=== PATIENT | male | born 1955 | race Caucasian/White ===

== ENCOUNTER 2021-05-17 18:57 | Emergency (ER) | payer BC, SELFPAY ==
--- NOTE | ~2021-05-17 | XR_ITS ---
EXAMINATION: XR hand LT min 3V INDICATION: Left hand swelling TECHNIQUE: Three views of the left hand are obtained. COMPARISON: None available FINDINGS: There is moderate osteoarthritis at the triscaphe and first carpometacarpal joints as well as in multiple interphalangeal joints. No fracture is identified. There is dorsal soft tissue swellin g of the hand. IMPRESSION: 1. Polyarticular osteoarthritis and dorsal soft tissue swelling of the hand without acute osseous abn ormality identified. Reviewed, dictated and finalized at location A. IMPRESSION: 1. Polyarticular osteoarthritis and dorsal soft tissue swelling of the hand wit hout acute osseous abnormality identified.
[2021-05-17 19:07] VITALS: BP 140/77; PULSE 80; RESP 16; TEMP 36.9; O2SAT 99
--- NOTE | 2021-05-17 19:27 | ED.UPPEXIN ---
HPI - Extremity Injury (Upper) General Chief Complaint: Extremity Injury, Upper Stated Complaint: left hand swollen Time Seen by Provider: 05/17/21 19:28 Source: patient, family, RN notes reviewed and old records reviewed Mode of arrival: ambulatory Limitations: no limitations History of Present Illness HPI narrative: 65-year-old male accompanied by spouse presents to [facility] complaints of left hand swelling and pain since yesterday morning. Patient states he awoke with his left hand swollen with reddened tissue area to the MCP of index digit on left hand with no known injury to hand. Patient is left hand dominant, denies any known bug bite, sting, or contusion to area with area raised and red with no induration but painful to touch. Patient is able to move all fingers on own power and is able to make a fist but not tight due to pain and swelling, nail beds have brisk capillary refill and patient has strong left radial pulse. He states that pain has increased to 8/10 today and he has been taking Benadryl and Ibuprofen for his pain. Patient has been COVID vaccinated. MD complaint: injury to: left Onset (ago): day(s) (1) Other Extremity Injury: Left: hand Treatments prior to arrival: NSAIDS and other (Benadryl) Related Data Home Medications Medication Instructions Recorded Confirmed atorvastatin 5 mg PO DAILY 05/17/21 05/17/21 trazodone 100 mg PO DAILY 05/17/21 05/17/21 zolpidem 12.5 mg PO HS 05/17/21 05/17/21 Allergies Allergy/AdvReac Type Severity Reaction Status Date / Time No Known Allergies Allergy Verified 05/17/21 19:40 Review of Systems Review of Systems: CONSTITUTIONAL: Denies fever, chills, or sweats. EYES: Denies visual changes, redness, or discharge. ENT: Denies rhinorrhea, congestion, sore throat, or otalgia. CARDIOVASCULAR: Denies chest pain, palpitations, or edema. RESPIRATORY: Denies cough or dyspnea. GASTROINTESTINAL: Denies abdominal pain, nausea, vomiting, or diarrhea. GENITOURINARY: Denies dysuria or hematuria. SKIN: Denies rash or itching, red raised tissue area to left index finger at MCP area dorsally. MUSCULOSKELETAL: Denies back pain,positive for pain to left hand with swelling present, or myalgia. NEUROLOGIC: Denies headache, numbness, or weakness. PSYCHIATRIC: Denies anxiety or depression. All systems reviewed & are unremarkable except as noted in HPI and below PMFSH Past Medical History Medical History (Updated 05/21/21 @ 11:22 by Sallie Mcgee NP) Arthritis Hyperlipidemia Insomnia Surgical History Surgical History (Updated 05/21/21 @ 11:21 by Sallie Mcgee NP) H/O total knee replacement Social History Social History (Updated 05/21/21 @ 11:21 by Sallie Mcgee NP) Smoking status: Unknown if ever smoked Substance use: never Living arrangements: with family Gender identity (if verbalized by the patient): Male Comments At time of signature, agree with nursing past medical, surgical, social and family history. There is no relevant family history pertinent to the presenting complaint Exam Narrative: GENERAL: Well-appearing, well-nourished, and in no acute distress. HEAD: Normocephalic, atraumatic. EYES: PERRLA and EOMI. ENT: Nares clear, no rhinorrhea or epistaxis. Mucous membranes moist.TM's normal with good light reflex, throat pink with no lesions or exudates ot tonsil enlargement. NECK: Supple.no lymphadenopathy CHEST: Clear to auscultation. No respiratory distress.SAO2 99% on room air. HEART: Regular rate and rhythm. No murmur heard. Normal peripheral pulses. ABDOMEN: Soft, nontender, nondistended, normal active bowel sounds. EXTREMITIES: Normal range of motion. No edema with exception to swelling to left hand which is pitting on dorsal aspect, 1.5 cm diameter red raised lesion area on left MCP area of index finger noted, with no known injury, bite, or sting, painful to touch and warm, adequate sensation and circulation to left hand with strong left radial
== END 2021-05-17 19:54 | disposition home or self-care (01) ==
PROVIDERS: Emergency Provider Registered Nurse; PCP Internal Medicine
DX: M79.89 Other specified soft tissue disorders (principal); L98.9 Disorder of the skin and subcutaneous tissue, unspecified; E78.00 Pure hypercholesterolemia, unspecified
CPT/HCPCS: 73130; 99213; G0463

== ENCOUNTER 2022-07-25 13:35 | Outpatient (CLI) | payer MEDICARE, SELFPAY ==
--- NOTE | ~2022-07-25 | XR_ITS ---
XR lumbar spine min 4V DATE: 07/25/2022 13:56 INDICATION: Back pain, left greater than right TECHNIQUE: AP, lateral, coned lateral lumbosacral views. Lateral oblique views. Flexion and extension standing views. COMPARISON: None FINDINGS: There is slight levoscoliosis of the lumbar spine. No spondylolysis or spondylolisthesis. T here is degenerative change at the apophyseal joints particularly at L4-5, with slight anterolisthesi s noted at L4-5 in flexion. No fracture or bone destruction is detected. Included lower thoracic and lumbar pedicles appear intac t. There is degenerative spurring throughout the included lower thoracic and lumbar spine the lumbar and lumbosacral interspaces are relatively preserved. Normal sacroiliac joints. Status post left total hip arthroplasty.. IMPRESSION: Degenerative changes apophyseal joints at L4-5 and particularly, with minimal grade 1 ant erolisthesis at L4-5 flexion Degenerative spurring throughout the lower thoracic and lumbar spine but relative preservation of lum bar intervertebral disc spaces Status post left total hip arthroplasty Reviewed, dictated and finalized at location B. L[facility] [employer]ENDANT IMPRESSION: Degenerative changes apophyseal joints at L4-5 and particularly, wi th minimal grade 1 anterolisthesis at L4-5 flexion Degenerative spurring throughout the lower thoracic and lumbar spine but relati ve preservation of lumbar intervertebral disc spaces Status post left total hip arthroplasty
== END 2022-07-25 13:36 | disposition home or self-care (01) ==
LOC: ANHIMG 13:39
PROVIDERS: PCP Internal Medicine; Visit Provider Neurological Surgery
DX: M54.9 Dorsalgia, unspecified (principal); M43.16 Spondylolisthesis, lumbar region; M77.8 Other enthesopathies, not elsewhere classified; Z96.642 Presence of left artificial hip joint
CPT/HCPCS: 72110

== ENCOUNTER 2022-10-17 15:45 | Outpatient (CLI) | payer MEDICARE, SELFPAY ==
--- NOTE | 2022-10-17 15:54 | ECG_ITS ---
Measurements Intervals [place] Rate: 63 P: 70 MS: 235 QRS: 11 QRSD: 79 T: 32 QT: 416 QTc: 428 Interpretive Statements SINUS RHYTHM WITH SINUS ARRHYTHMIA WITH FIRST DEGREE AV BLOCK BORDERLINE ECG NO PREVIOUS ECG AVAILABLE FOR COMPARISON Electronically Signed On 10-17-2022 16:10:53 RETAIL BUSINESS ANALYST by Randolph Agustin M.D.
[2022-10-17 16:29] LABS: Appearance Urine Clear (Clear); Bilirubin Urine Negative (Negative); Blood Urine Negative (Negative); Color Urine Yellow (Yellow); Glucose Urine UA Negative (Negative); Hematocrit 41.8 % (42.0-52.0); Hemoglobin 14.5 g/dL (14.0-18.0); Ketones Urine Negative (Negative); Leukocyte Esterase Ur Negative LEU/UL (NEGATIVE); Mean Corpuscular HGB Conc 34.7 g/dl (32-36); Mean Corpuscular Hemoglobin 34.1 pg (26-34); Mean Corpuscular Volume 98.4 fl (80-100); Nitrate Urine Negative (Negative); Platelet Count Result 172 k/mm3 (150-375); Protein Urine Negative (Negative); Red Blood Count 4.25 M/mm3 (4.6-6.20); Red Cell Distribution Width 12.7 % (11.5-14.5); Specific Grav Ur 1.012 (1.001-1.035); Urobilinogen Urine 0.2 mg/dL (<2.0); White Blood Count 5.7 K/mm3 (4.5-10.0)
[2022-10-17 16:37] LABS: Anion Gap 6 mmol/L (8-16); Blood Urea Nitrogen 13 mg/dL (9-20); Calcium 9.1 mg/dL (8.4-10.2); Carbon Dioxide 29 mmol/L (22-30); Chloride 106 mmol/L (98-107); Estimated Glomerular Filt Rate > 60; Glucose 93 mg/dL (65-110); Potassium 4.1 mmol/L (3.4-5.0); Sodium 141 mmol/L (137-145)
[2022-10-17 16:38] LABS: INR 1.1; Prothrombin Time 13.4 Seconds (11.1-14.7)
[2022-10-17 16:39] LABS: Partial Thromboplastin Time 28.8 SECONDS (22.3-36.8)
[2022-10-17 16:57] LABS: Add Urine Microscopic? NO
== END 2022-10-17 15:46 | disposition home or self-care (01) ==
PROVIDERS: PCP Internal Medicine; Visit Provider Neurological Surgery
DX: Z01.818 Encounter for other preprocedural examination (principal); Z79.82 Long term (current) use of aspirin; I49.8 Other specified cardiac arrhythmias
CPT/HCPCS: 36415; 80048; 81003; 85027; 85610; 85730; 86850; 86900; 86901; 93005

== ENCOUNTER 2022-10-26 01:11 | Day surgery (SDC) | payer MEDICARE, SELFPAY ==
[2022-10-23 11:42] VITALS: BMI 32.8
--- NOTE | 2022-10-23 11:57 | PC.NURSE ---
Report to the Outpatient Waiting Room, entrance under the green pavilion located off [facility], at time __6:00am on date ____10/26/22___. Planned Procedure Time: ___7:30am . Time changes happen often and if your time is changed the preop area will call you the afternoon before. - You and your visitor will be asked to self-screen and do not enter if you have any COVID symptoms. - Only one visitor is requested with a max of two and NO children visitors are allowed at this time. - The patient visitor may be requested to leave or wait in car when not with patient due to distancing restrictions. - A mask is optional within the hospital at this time. Patients may have clear liquids (water, carbonated beverages, clear teas, apple juice) until 3 hours prior to surgery with a maximum of 20 ounces. - No food from midnight until time of surgery Take the following medications with a SIP of water the morning of surgery: ___NONE DO NOT STOP ANY OF YOUR OTHER PRESCRIPTION MEDICATIONS PRIOR TO SURGERY ?EXCEPT THE FOLLOWING Medications to discontinue per physician ___HOLD ASPIRIN 7 DAYS PRE-OP PER DR WINSTON(PER PATIENT), HOLD ADVIL PER DR WINSTON- PATIENT CALLING TO CONFIRM TIME-FRAME. HOLD ALL VITAMINS/SUPPLEMENTS 3 DAYS PRE-OP- LAST DOSE 10/22/22 Please no make-up, nail nigerien, hairspray, perfume, deodorant, or body powder the day of surgery. No jewelry (including any body piercings) or valuables the day of surgery, leave them at home. Please take a shower or bath the night before, or the morning of, surgery with an antibacterial soap. Wear comfortable, loose fitting clothing. Children are encouraged to wear pajamas. - Jewelry must be removed prior to entering the operating room. Rings and piercings that are not removed may be cut off. - The hospital will not accept responsibility for valuables. - Please leave all valuables, including medications, at home the day of surgery. If you are going home after surgery, a licensed driver/merchandiser must drive you home. - NO public transportation without another adult if you receive anesthesia. - We recommend that an adult stay with you for 24 hours following discharge. - We also recommend that you do not drive, make important decision, drink alcoholic beverages, or take any drugs that were not prescribed by your health care provider for at least 24 hours after your discharge time. Follow any additional instructions given to you from your surgeon. If you or anyone in your household have experienced Covid symptoms in the past week, please notify your surgeon or the nurse liaison at the phone number below for possible testing. Telephone instructions given to ___PATIENT and asked if any additional questions and then verbalized understanding. Patient advised to call surgeon office or pre surgery nurse liaison [phone] if any additional questions.
[2022-10-26] VITALS (8 sets, daily range): BP systolic 132–145; BP diastolic 70–83; PULSE 58–78; RESP 8–20; TEMP 36.7–36.8; O2SAT 95–98
--- NOTE | ~2022-10-26 | XR_ITS ---
EXAMINATION: XR fluoroscopy no charge DATE: 10/26/2022 09:25 INDICATION: Lumbar stenosis. TECHNIQUE: 2 intraoperative lateral fluoroscopic views of the lumbar spine were obtained. I was not p resent. Fluoroscopy exposure time was 3 seconds. COMPARISON: Lumbar spine radiographs 07/25/2022 FINDINGS: Instruments overlie the posterior elements at L4-L5. There is mild lumbar spondylosis. IMPRESSION: 1. Instruments overlie the posterior elements at L4-5. Reviewed, dictated and finalized at location A. CHIPPER
[2022-10-26] MEDS: LACTATED RINGERS 1,000 ML 30 ML IV CONT ×2 (06:30→09:10)
--- NOTE | 2022-10-26 07:10 | WPDANESEPPF ---
Anes - Initial Pre Proc Eval Procedure: Operation Date: 10/26/22 07:30 Proposed Procedures p Lumbar Decompression L4-5 - Richelle Lockwood MD Date/Time: 10/26/22 07:10 Surgeon: Richelle Lockwood MD Pre Op Diagnosis: lumbar stenosis Patient Data Age: 66 Gender: M Height: 1.83 m Weight: 110 kg Allergies Allergy/AdvReac Type Severity Reaction Status Date / Time No Known Allergies Allergy Verified 10/23/22 11:37 Home Medications Medication Instructions Recorded Confirmed Type atorvastatin 10 mg tablet 10 mg PO DAILY 05/17/21 10/23/22 History tramadol 50 mg tablet 50 mg PO Q6H PRN pain #10 tabs 05/17/21 10/23/22 Rx trazodone 100 mg tablet 100 mg PO HS 05/17/21 10/23/22 History zolpidem 12.5 mg tablet,extended 12.5 mg PO HS 05/17/21 10/23/22 History release,multiphase ascorbate calcium (vitamin C) 500 500 mg PO DAILY 10/23/22 10/23/22 History mg capsule aspirin 81 mg tablet,delayed 81 mg PO DAILY 10/23/22 10/23/22 History release cyanocobalamin (vitamin B-12) 1,000 mcg PO DAILY 10/23/22 10/23/22 History 1,000 mcg tablet,extended release ibuprofen 200 mg tablet (Advil) 800 mg PO Q6H PRN Pain 10/23/22 10/23/22 History niacin 500 mg tablet 500 mg PO DAILY 10/23/22 10/23/22 History Patient hx anesthesia problems: none Family hx anesthesia problems: none Results Review: All pre-operative results and documents have been reviewed as part of the pre-operative evaluation. [facility] Past Medical History Medical History Arthritis High cholesterol Hyperlipidemia Insomnia Sleep apnea Surgical History Surgical History H/O total knee replacement History of hip replacement Family History Family History Other Diabetes mellitus Heart disease Hypertension Social History Social History Smoking packs per day: 1 Smoking cigarettes per day: 20.0 Years smoked: 12 Smoking pack-years: 12.00 Smoking status: Former smoker Tobacco type: cigarettes Smoking end date: 02/17/02 Alcohol intake: current Drinks per week: 12 Substance use: never Substance use type: does not use Lack of Transportation: No Lack of Food: Never True Current Housing: I Have Housing Concerned About Future Housing: No Difficulty Paying Gas/Electric Bills: No Difficulty Paying for Meds: No Currently Unemployed: No Education: Decline to Answer Difficulty w/ Childcare or Family Care: Decline to Answer Living arrangements: with family Additional living arrangements comments: Occupation/Education: occupation Gender identity (if verbalized by the patient): Male Spiritual care concerns: No Anes - Eval Final PreProcedure Day of Procedure 10/26/22 07:10 Patient weight: obese Heart: regular rate and rhythm Lungs: clear to auscultation Airway: Mallampati scale class II Neurological: alert and oriented Last oral intake: >/= 8 hours ASA classification: III Emergent: no Anesthetic plan: proceed Anesthesia type and monitoring: general ETT and standard monitoring Results Review: All pre-operative results and documents have been reviewed as part of the pre-operative evaluation. Informed Consent: The patient's anesthetic plan and its attendant risks and benefits were discussed with the patient/family/POA. Questions were solicited and answers provided to the satisfaction of the patient/family/POA.
--- NOTE | 2022-10-26 07:42 | PM.IMHP ---
H&P: HPI History of Present Illness Date/Time: 10/26/22 07:42 Chief Complaint: lumbar stenosis Narrative: Primitivo Corona? is a very pleasant 66-year-old man who originally presented and was seen at the request of Dr. Daily with a chief complaint of low back pain with some radiation to the left hip.? The patient has a history of a hip replacement approximately 2 years ago.? He had persistent pain involving the left hip ever since that surgery.? He also, however, has had pain in the low back, worse with standing or walking any significant distance.? This has been worse over the past year.? The patient was lifting a bag of rock in August of 2021.? After that he had an aggravation of his back pain and was unable to stand up straight for some period of time.? his symptoms improved but had not entirely resolved. The patient underwent MRI of the lumbar spine from November 2021.? This shows multilevel spondylotic changes.? At the L4-5 level a disc bulge in concert with ligamentous hypertrophy as well as a synovial cyst contribute to moderate central and moderate to severe lateral recess stenosis.? At all other levels, there is no greater than mild central or neuroforaminal stenosis.? AP lateral and dynamic plain x-rays show no evidence of significant scoliosis, listhesis, or dynamic instability.? ? He has seen Dr. Daily and has had repeated interventional measures.? Most recently an epidural steroid injection targeting L4 bilaterally gave significant relief of his pain for approximately 2 weeks.? The patient had worsened pain for the 1st few days after the injection but then his pain improved. I last saw the patient in early July 2022.? At that visit he stated that he chronically has pain in the hip that he rates to or 3/10.? This did not respond to the KEITH.? In July he rated his pain as 1/10, but more recently the pain has increased.? He finds relief with ibuprofen.? If he did not take ibuprofen or after standing or walking a significant distance, his pain can be as severe as 10 of 10.? His pain is worse with standing or walking any significant distance.? It is improved with bending forward or with sitting down.? The patient denies any radiating symptoms save perhaps some mild tingling in his left posterior thigh.? He denies focal motor weakness.? He presents for recommendations regarding most appropriate steps in management of the symptoms and radiographic findings.? His symptoms are frustrating enough to want to consider surgery.? ? He has undergone updated MRI imaging of the lumbar spine performed on August 31, 2022 at [facility] that again shows moderate to severe spinal stenosis at L4-5 without significant stenosis at levels adjacent PMFSH Past Medical History Medical History Arthritis High cholesterol Hyperlipidemia Insomnia Sleep apnea Surgical History Surgical History H/O total knee replacement History of hip replacement Family History Family History Other Diabetes mellitus Heart disease Hypertension Social History Social History Smoking packs per day: 1 Smoking cigarettes per day: 20.0 Years smoked: 12 Smoking pack-years: 12.00 Smoking status: Former smoker Tobacco type: cigarettes Smoking end date: 02/17/02 Alcohol intake: current Drinks per week: 12 Substance use: never Substance use type: does not use Lack of Transportation: No Lack of Food: Never True Current Housing: I Have Housing Concerned About Future Housing: No Difficulty Paying Gas/Electric Bills: No Difficulty Paying for Meds: No Currently Unemployed: No Education: Decline to Answer Difficulty w/ Childcare or Family Care: Decline to Answer Living arrangements: with family Additional ilene
--- NOTE | 2022-10-26 07:45 | WPDHPUPDATE1 ---
History and Physical Update Update Date/Time: 10/26/22 07:45 History and Physical has been reviewed, including an updated exam of the patient. There are NO changes in the patient's condition. Risks, benefits, and alternatives have been discussed and questions answered. Patient agrees to proceed with procedure. Planning L4-5 decompression
[2022-10-26] MEDS: ceFAZolin 2 GM/D5W 50 ML 2 GM/50 ML BAG IVPB (07:51)
[2022-10-26] MEDS: LIDO 1%/EPINEPHRINE 1:100,000 20 ML VIAL 8 ML INFILTRATE (08:11)
--- NOTE | 2022-10-26 08:35 | SUR.OPER ---
pre op assessment/patient stated pain in left hip and posterior thigh. = strength in feet extension/flextion and leg lifts. + and = sensation in toes and feet bilateral. denies difficulty walking.
[2022-10-26] MEDS: BUPivacaine HCL 0.5% PF 30 ML VIAL INFILTRATE (08:37)
--- NOTE | 2022-10-26 08:50 | W.PM.PROC2 ---
Procedure Note - Detailed Date of Procedure 10/26/22 Pre-op Diagnosis lumbar stenosis Post-op Diagnosis Same Procedure Performed lumbar laminectomy and foraminotomies L4-5 Surgeon Richelle Lockwood MD Anesthesia General Indications Primitivo Corona is a very pleasant? 66 year old? male who presents at the request of? Dr. Daily with signs and symptoms of? claudicatory low back pain with some left hip pain that is not clearly radicular in the setting of? lumbar stenosis most pronounced at L4-5 on imaging.? Mr. Corona has tried treatments that include a home exercise regimen as well as multiple interventional measures including an epidural steroid injection targeting the L4-5 level the gave significant relief of the patient's claudicatory back pain for approximately 2 weeks but has not given lasting relief.? after our most recent visit, the patient had a final epidural steroid injection that gave her relief for only 3-4 days.? In the office the most concerning symptom to the patient was that standing for any extended period of time is increasingly limiting to the patient.? He states that even a long shower can contribute to pain.? He is frustrated by his symptoms and while he was initially hesitant to consider surgery at today's visit he indicates that he is inclined to surgery. The patient and I have had an extended discussion in the office? regarding the options for management of these clinical symptoms and radiographic findings. We have discussed the option of physical therapy and the benefit to a formal course of physical therapy. We have discussed the option of interventional pain management strategies including KEITH or ablative procedures. In this case we have more specifically discussed that the patient has had multiple recent epidural steroid injections.? These have not given lasting relief.? We have discussed that the likelihood the repeated times would offer a different result a small Finally, we have also discussed the option of surgery. In the absence of functional deficits, I have explained that my preference is to exhaust non surgical options prior to consideration of surgery. However, we have discussed that as he has been unable to obtain durable relief of symptoms with non surgical measures that it would be very reasonable to consider surgical intervention. In this case we have discussed that in the absence of dynamic instability at L4-5 surgery would? entail a lumbar decompression at L4-5. ?I have discussed the indications as well as the risks of surgery including but not limited to bleeding, infection, CSF leak, numbness, weakness, paralysis, stroke, coma, even . We have discussed the fundamentals of the surgical procedure as well as the typical recovery from surgery.? Mr. Corona is inclined to? surgery? and he presents today for that surgery.? Description of Procedure The patient was brought into the operating room where general anesthesia was induced.? Appropriate monitoring was obtained.? The patient was turned into a prone position on the Juan table with a Juan frame.? Extremities were padded.? The patient was secured with straps to the table.? Localization was performed using intraoperative fluoroscopy and the L4-5 level was identified. The patient's back was prepped and draped sterilely.? A surgical time out was performed.? The planned incision was infused with local anesthetic.? The incision was made using a #10 skin blade.? Hemostasis was achieved. Self retaining retractors were placed and advanced.? The? L4 spinous process was identified and the muscle was dissected off of the spinous process and lamina of L4 using bovie electrocautery.? Self retaining retractors were advanced.? A curette was placed under the L4 lamina and the L4-5 level was confirmed again using intraoperative fluoroscopy.? Attention was first turned to the L4-5 level.?? The spinous process of L4 was removed using a rongeur.? The lamina was drilled using a high speed b
[2022-10-26] MEDS: oxyCODONE HCL (*CRX) 5 MG TAB IR PO (10:15)
== END 2022-10-26 11:14 | disposition home or self-care (01) ==
PROVIDERS: PCP Internal Medicine; Visit Provider Neurological Surgery
PROC: (CPT 63005; principal; 2022-10-26 07:30)
DX: M48.062 Spinal stenosis, lumbar region with neurogenic claudication (principal); E78.00 Pure hypercholesterolemia, unspecified; G47.30 Sleep apnea, unspecified; Z79.82 Long term (current) use of aspirin; Z87.891 Personal history of nicotine dependence; E66.9 Obesity, unspecified; Z68.32 Body mass index [BMI] 32.0-32.9, adult
CPT/HCPCS: 63047; 99199; A9270; J0690; J1100; J2405; J2704; J2710; J3010; J3370; J7120